=== PATIENT | female | born 1960 | race Hispanic/Latino ===

== ENCOUNTER 2021-08-12 08:03 | Observation (INO) | payer SELFPAY ==
[~2021-08-12] VITALS: Ht 121.9 cm; Wt 45.5 kg
[2021-08-12 08:50] LABS: BASOPHILS % (AUTO) 0.9 % (0.0-5.0); EOSINOPHILS % (AUTO) 2.6 % (0.0-8.0); HEMATOCRIT 37.8 % (36-48); LYMPHOCYTES % (AUTO) 26.1 % (21.0-51.0); MEAN CORPUSCULAR HEMOGLOBIN 27.4 pg (27.0-33.0); MEAN CORPUSCULAR HGB CONC 31.5 g/dL (32.0-36.0); MEAN CORPUSCULAR VOLUME 87.1 fL (79-99); MONOCYTES % (AUTO) 6.4 % (3.0-13.0); NEUTROPHILS % (AUTO) 63.6 % (40.0-77.0); PLATELET COUNT (AUTO) 200 K/uL (130-400); RED BLOOD CELL COUNT(AUTO) 4.34 MIL/uL (4.00-5.50); RED CELL DISTRIBUTION WIDTH 15.8 % (11.0-15.5); WHITE BLOOD COUNT (AUTO) 7.7 K/uL (4.8-10.8)
[2021-08-12 08:57] LABS: CREATININE 0.6 mg/dL (0.5-1.5); POTASSIUM 3.8 mmol/L (3.5-5.1)
[2021-08-12 08:59] LABS: INR 0.98 (0.85-1.15); PROTHROMBIN TIME 10.7 SEC (9.6-11.6)
[2021-08-12 09:00] LABS: PARTIAL THROMBOPLASTIN TIME 27.1 SEC (26.3-35.5)
[2021-08-12 09:01] LABS: ALBUMIN 3.7 g/dL (3.5-5.0); BILIRUBIN,TOTAL 0.3 mg/dL (0.2-1.0)
[2021-08-12 09:11] LABS: B-TYPE NATRIURETIC PEPTIDE 96 pg/mL (0-100)
[2021-08-12] MEDS ORDERED: IOHEXOL-350 75 ML VIAL IV ONE (10:22)
[2021-08-12] MEDS ORDERED: SITA100T12 PO (10:48)
[2021-08-12] MEDS ORDERED: EZET10TA13 PO (10:48)
[2021-08-12] MEDS ORDERED: DAPA5TAB PO (10:48)
[2021-08-12] MEDS ORDERED: METF-444 PO (10:48)
[2021-08-12] MEDS ORDERED: OMEP-420 PO (10:48)
[2021-08-12] MEDS ORDERED: ROSU40TA21 PO (10:48)
[2021-08-12] MEDS ORDERED: INSULIN (10:48)
[2021-08-12] MEDS: INSULIN HUMULIN R 100 UNIT/ML 3ML SQ SCH ×3 (11:30→20:36)
[2021-08-12] MEDS ORDERED: GLUCAGON 1MG KIT 1 MG ML IM PRN (11:30)
[2021-08-12] MEDS ORDERED: DEXTROSE 50%-WATER 50 ML DISP.SYRIN IV PRN (11:30)
[2021-08-12 11:32] LABS: HEMOGLOBIN A1C 9.3 % (4.0-6.0)
[2021-08-12 11:37] LABS: CHOLESTEROL 221 mg/dL (<200); HDL CHOLESTEROL 84 mg/dL (35-85); LDL DIRECT 105 mg/dL (0-99); MYOGLOBIN 17 ng/mL (10-92); TRIGLYCERIDES 129 mg/dL (30-200)
[2021-08-12 12:51] LABS: APPEARANCE,URINE Cloudy (CLEAR); BILIRUBIN,URINE Negative (NEGATIVE); COLOR,URINE Yellow (YELLOW); GLUCOSE, URINE (UA) >=1000 mg/dL (NEGATIVE); KETONES,URINE Negative (NEGATIVE); LEUKOCYTE ESTERASE ,URINE Small (NEGATIVE); NITRATE,URINE Negative (NEGATIVE); OCCULT BLOOD,URINE Negative (NEGATIVE); PROTEIN,URINE Negative (NEGATIVE)
[2021-08-12 13:07] LABS: BACTERIA,URINE Many /HPF (None Seen); RBC,URINE 0-1 /HPF (0-1)
[2021-08-12] MEDS: FAMOTIDINE 20MG VIAL IV SCH ×2 (21:28→23:45)
[2021-08-12 23:15] VITALS: BP 148/77
[2021-08-13 04:25] VITALS: BP 122/57
[2021-08-13 04:39] LABS: HEMATOCRIT 35.8 % (36-48); MEAN CORPUSCULAR HEMOGLOBIN 27.7 pg (27.0-33.0); MEAN CORPUSCULAR HGB CONC 32.1 g/dL (32.0-36.0); MEAN CORPUSCULAR VOLUME 86.3 fL (79-99); RED BLOOD CELL COUNT(AUTO) 4.15 MIL/uL (4.00-5.50); RED CELL DISTRIBUTION WIDTH 16.1 % (11.0-15.5); WHITE BLOOD COUNT (AUTO) 9.2 K/uL (4.8-10.8)
[2021-08-13 04:53] LABS: INR 0.94 (0.85-1.15); PROTHROMBIN TIME 10.3 SEC (9.6-11.6)
[2021-08-13 05:25] LABS: ALBUMIN 3.5 g/dL (3.5-5.0); BILIRUBIN,TOTAL 0.3 mg/dL (0.2-1.0); CREATININE 0.5 mg/dL (0.5-1.5); POTASSIUM 3.8 mmol/L (3.5-5.1); TOTAL PROTEIN, SERUM 6.7 g/dL (6.0-8.3)
[2021-08-13] MEDS: INSULIN HUMULIN R 100 UNIT/ML 3ML SQ SCH ×2 (07:30→11:30)
[2021-08-13 08:56] VITALS: BP 132/63
[2021-08-13] MEDS ORDERED: LINAGLIPTIN 5 MG TABLET PO SCH (09:00)
[2021-08-13] MEDS ORDERED: ATORVASTATIN 40 MG TABLET PO SCH (09:00)
[2021-08-13] MEDS ORDERED: EZETIMIBE 10 MG TAB PO SCH (09:00)
[2021-08-13] MEDS ORDERED: **HM** FARXIGA 5MG PO SCH (09:00)
[2021-08-13] MEDS ORDERED: LISINOPRIL 10 MG TABLET PO SCH (12:30)
[2021-08-13 12:53] VITALS: BP 122/59
[2021-08-13] MEDS ORDERED: LISI10TA24 PO (13:04)
[2021-08-13] MEDS ORDERED: CLOP75TA14 PO (13:05)
== END 2021-08-13 15:53 | disposition home or self-care (01) ==
LOC: EDH 08:03 → EDHIP 10:57 → 2DH 23:15
PROVIDERS: ADMIT Hospitalist; ATTEND Hospitalist
DX: I63.9 Cerebral infarction, unspecified (principal); G45.9 Transient cerebral ischemic attack, unspecified; R07.89 Other chest pain; I16.0 Hypertensive urgency; E11.65 Type 2 diabetes mellitus with hyperglycemia; I25.10 Atherosclerotic heart disease of native coronary artery without angina pectoris; E78.5 Hyperlipidemia, unspecified; I10 Essential (primary) hypertension; K21.9 Gastro-esophageal reflux disease without esophagitis; E78.00 Pure hypercholesterolemia, unspecified; G51.0 Bell's palsy; R29.703 NIHSS score 3; R94.31 Abnormal electrocardiogram [ECG] [EKG]; Z79.84 Long term (current) use of oral hypoglycemic drugs; Z79.899 Other long term (current) drug therapy; Z98.890 Other specified postprocedural states
CPT/HCPCS: 36415 ×2; 70450; 70544; 70547; 70551; 71045; 80053 ×2; 80061; 81001; 82550 ×3; 82948 ×6; 83036; 83721; 83874 ×3; 83880; 84484 ×3; 85025; 85027; 85610 ×2; 85730; 87077; 87088; 87186; 92522; 92610; 93005 ×4; 96374; 99291; G0378 ×28; J3490; Q9967

== ENCOUNTER 2021-12-11 14:23 | Emergency (ER) | payer OTHER ==
[~2021-12-11] VITALS: Ht 152.4 cm; Wt 46.7 kg
[~2021-12-11 14:23] MED LIST: CLOP75TA14 PO; DAPA5TAB PO; EZET10TA13 PO; INSULIN; LISI10TA24 PO; METF-444 PO; OMEP-420 PO; ROSU40TA21 PO; SITA100T12 PO
[2021-12-11 14:51] LABS: BASOPHILS % (AUTO) 0.9 % (0.0-5.0); EOSINOPHILS % (AUTO) 3.3 % (0.0-8.0); LYMPHOCYTES % (AUTO) 29.2 % (21.0-51.0); MEAN CORPUSCULAR HEMOGLOBIN 27.5 pg (27.0-33.0); MEAN CORPUSCULAR HGB CONC 31.8 g/dL (32.0-36.0); MEAN CORPUSCULAR VOLUME 86.4 fL (79-99); MONOCYTES % (AUTO) 4.9 % (3.0-13.0); NEUTROPHILS % (AUTO) 61.3 % (40.0-77.0); PLATELET COUNT (AUTO) 186 K/uL (130-400); RED BLOOD CELL COUNT(AUTO) 3.82 MIL/uL (4.00-5.50); WHITE BLOOD COUNT (AUTO) 10.3 K/uL (4.8-10.8)
[2021-12-11 15:00] LABS: CREATININE 0.7 mg/dL (0.5-1.5); POTASSIUM 4.2 mmol/L (3.5-5.1)
[2021-12-11 15:09] LABS: ALBUMIN 3.3 g/dL (3.5-5.0); BILIRUBIN,TOTAL 0.2 mg/dL (0.2-1.0); MAGNESIUM 1.9 mg/dL (1.80-2.40); TOTAL PROTEIN, SERUM 6.7 g/dL (6.0-8.3)
[2021-12-11 16:09] LABS: APPEARANCE,URINE Clear (CLEAR); BILIRUBIN,URINE Negative (NEGATIVE); COLOR,URINE Yellow (YELLOW); GLUCOSE, URINE (UA) Negative (NEGATIVE); KETONES,URINE Negative (NEGATIVE); LEUKOCYTE ESTERASE ,URINE Trace (NEGATIVE); NITRATE,URINE Negative (NEGATIVE); OCCULT BLOOD,URINE Negative (NEGATIVE); PROTEIN,URINE Negative (NEGATIVE); UROBILINOGEN,URINE 0.2 mg/dL (0.2-1.0)
[2021-12-11 16:18] LABS: RBC,URINE 0-1 /HPF (0-1)
[2021-12-11 16:19] LABS: BACTERIA,URINE Rare /HPF (None Seen); SQUAMOUS EPITHELIAL CELL,UR Rare /HPF (0-2); WBC,URINE 0-1 /HPF (0-1)
[2021-12-11] MEDS ORDERED: ACETAMINOPHEN 500 MG TABLET PO ONE (17:00)
[2021-12-11] MEDS ORDERED: CYCLOBENZAPRINE HCL 10 MG TABLET PO ONE (17:00)
[2021-12-11] MEDS ORDERED: NAPR-1180 PO (17:06)
[2021-12-11] MEDS ORDERED: CYCL10TA16 PO (17:06)
[2021-12-11 17:23] VITALS: BP 132/78
== END 2021-12-11 17:26 | disposition home or self-care, planned readmission (81) ==
LOC: EDH 14:23
DX: G44.209 Tension-type headache, unspecified, not intractable (principal); E11.9 Type 2 diabetes mellitus without complications; E78.00 Pure hypercholesterolemia, unspecified; I10 Essential (primary) hypertension; Z79.899 Other long term (current) drug therapy; Z91.013 Allergy to seafood; Z79.84 Long term (current) use of oral hypoglycemic drugs
CPT/HCPCS: 36415; 70450; 80053; 81001; 82550; 83735; 84484; 85025; 93005

== ENCOUNTER 2025-07-30 19:58 | Emergency (ER) | payer OTHER, MEDICARE ==
[~2025-07-30] VITALS: Ht 149.9 cm; Wt 49.4 kg
[~2025-07-30 19:58] MED LIST changes: +CLOP-31 PO; -CLOP75TA14 PO; +CYCL10TA16 PO; -EZET10TA13 PO; +EZET10TA81 PO; +NAPR-1180 PO; -ROSU40TA21 PO; +ROSU40TA88 PO
--- NOTE | 2025-07-30 20:18 | ERN ---
General Chief Complaint: Headache Stated Complaint: HEADACHE,NECK PAIN, SHOULDER PAIN ONSET THIS AM Time Seen by MD: 20:02 History of Present Illness Initial Comments 65-year-old female history of hypertension diabetes here for evaluation of neck pain/muscular pain. Symptoms started at 3:00 a.m. this morning and progressively worsened to the point she decided to come to the emergency room for evaluation. She took no medications for pain prior to arrival. She states that she has pain at her neck that radiates to her left and right arm. Allergies: Coded Allergies: shrimp (Unverified Allergy, Unknown, 08/12/21) Home Meds Active Scripts Cyclobenzaprine HCl (Flexeril) 10 Mg Tab, 10 MG PO BID, #30 TAB Prov:FARHANA OLVERA 12/11/21 Naproxen (Naprosyn) 500 Mg Tablet, 500 MG PO BIDPC, #30 TAB Prov:FARHANA OLVERA 12/11/21 Clopidogrel Bisulfate (Plavix) 75 Mg Tablet, 75 MG PO DAILY for 30 Days, #30 TAB 3 Refills Prov:FELICE RODRIGUEZ Jr., MD 08/13/21 Lisinopril (Lisinopril) 10 Mg Tablet, 10 MG PO DAILY for 30 Days, #30 TAB 1 Refill Prov:FELICE RODRIGUEZ Jr., MD 08/13/21 Reported Medications [Insulin] No Conflict Check 08/12/21 Sitagliptin Phosphate (Januvia) 100 Mg Tablet, 100 MG PO DAILY, TAB 08/12/21 Omeprazole (Omeprazole) 20 Mg Tab.rap.dr, 20 MG PO DAILY 08/12/21 Dapagliflozin Propanediol (Farxiga) 5 Mg Tablet, 5 MG PO DAILY, TAB 08/12/21 Rosuvastatin Calcium (Rosuvastatin Calcium) 40 Mg Tablet, 40 MG PO DAILY, TAB 08/12/21 Ezetimibe (Zetia) 10 Mg Tablet, 10 MG PO DAILY, TAB 08/12/21 Metformin HCl (Metformin HCl) 500 Mg Tablet, 500 MG PO BID, TAB 08/12/21 Past Medical History Past Medical History: Diabetes-Type II, High Cholesterol, Hypertension Past Surgical History: None Family History Family History: Negative Social History Social History: Negative Musculoskeletal: (+) Neck pain, (+) back pain Review of Systems: was completed, & the rest were negative. Physical Exam Physical Exam Dictation 65-year-old female history of hypertension and diabetes here for evaluation of neck pain. Likely cervicalgia given she has numbness and tingling in bilateral extremities. We will treat with migraine cocktail and reassess. MDM 65-year-old female here for evaluation of neck pain. Improved here with migraine cocktail. She may have some cervicalgia component to her muscular p ain. We will discharge her home at this time. ED Course Orders Procedure Category Date Status Time 0.9%Nacl 1000ml (Ns PHA 07/30/25 In Process 1000ml) 20:30 Ketorolac PHA 07/30/25 Complete Tromethamine 15mg/Ml 20:30 Prochlorperazine PHA 07/30/25 Complete 10mg/2ml Inj 20:30 Diphenhydramine Hcl PHA 07/30/25 Complete (Benadryl Inj) 20:30 Cerv Spine 2-3vws RAD 07/30/25 Resulted 20:15 Current Medications Medications (Trade) Dose Ordered Sig/Paul Route PRN Reason Start Time Stop Time Status Last Admin Dose Admin Diphenhydramine HCl (BENAdryl INJ) 25 mg ONCE ONCE IV 07/30/25 20:30 07/30/25 20:31 DC 07/30/25 20:26 Ketorolac Tromethamine (toRADol) 15 mg ONCE ONCE IV 07/30/25 20:30 07/30/25 20:31 DC 07/30/25 20:25 Prochlorperazine Edisylate (Compazine 10mg/ 2ml Inj) 10 mg ONCE ONCE IV 07/30/25 20:30 07/30/25 20:31 DC 07/30/25 20:26 Sodium Chloride 1,000 ml @ 0 mls/hr Q0M IV 07/30/25 20:30 08/29/25 20:29 07/30/25 20:26 Vital Signs Date Time Temp Pulse Resp B/P (MAP) Pulse Ox O2 Delivery O2 Flow Rate FiO2 07/30/25 20:19 98.6 70 18 163/92 98 Room Air* 0 21 07/30/25 20:01 97.3 74 24 214/74 99 Room Air DX & DISP Disposition: Discharge Departure Impression: Primary Impression: Cervicalgia Additional Impression: Tension headache Condition: Stable Scripts Methocarbamol (Methocarbamol) 500 Mg Tablet 1 TAB PO TID for 10 Days, #30 TAB 0 Refills Prov: YAZMIN COONEY MD 07/30/25 Referrals: YAZMIN COONEY MD (PCP) YAZMIN COONEY MD Jul 30, 2025 20:18
[2025-07-30] MEDS: 0.9%NACL 1000ML 1,000 ML IV SCH (20:26)
[2025-07-30] MEDS: PROCHLORPERAZINE 10MG/2ML INJ IV ONE (20:26)
--- NOTE | 2025-07-30 21:17 | HMCIMG ---
EXAM: CR Cervical spine, 2 views. CLINICAL HISTORY: Cervicalgia. COMPARISON: None provided. FINDINGS: Cervical alignment is within normal limits. Normal intervertebral disc spaces. Normal vertebral body heights. No acute fracture. The prevertebral soft tissues are within normal limits. The included lungs are clear. IMPRESSION: No acute bony abnormality is evident. /[place]
[2025-07-30] MEDS ORDERED: METH-811 PO (21:25)
[2025-07-30 21:36] VITALS: BP 131/60; PULSE 75; RESP 18; TEMP 98.6; O2SAT 97
--- NOTE | 2025-07-31 10:45 | EKG ---
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
== END 2025-07-30 21:47 | disposition home or self-care (01) ==
LOC: EDH 19:58
DX: G44.209 Tension-type headache, unspecified, not intractable (principal); M54.2 Cervicalgia; E11.9 Type 2 diabetes mellitus without complications; E78.00 Pure hypercholesterolemia, unspecified; I10 Essential (primary) hypertension; Z79.02 Long term (current) use of antithrombotics/antiplatelets; Z79.84 Long term (current) use of oral hypoglycemic drugs; Z79.899 Other long term (current) drug therapy
CPT/HCPCS: 99284; 96374; 96375; 72040; 93005; J1885; J1200; J7030; J0780